=== PATIENT | female | born 1995 | race Caucasian/White ===

== ENCOUNTER 2016-08-17 22:39 | Emergency (ER) | payer OTHER ==
[2016-08-17 23:13] VITALS: BP 141/65; PULSE 123; TEMP 100.8; BMI 47.5
--- NOTE | 2016-08-17 23:28 | PDOC ---
History of Present Illness - General History Source: Patient - History of Present Illness Initial Comments: 08/17/16 23:42 The patient is a 20 year old female with a significant past medical history of asthma who presents to the Emergency Department with complaints of bodyache and nausea since yesterday. Pt states that she was seen in [facility] this morning with the same complaint and was diagnosed with viral syndrome. Pt presented to the ER since her symptoms did not improve. She also reports chills and sore throat while in the ER. She reports taking Tylenol in the morning, with no relief. She denies abdominal pain, vomiting, diarrhea, dysuria, hematuria, headache, chest pain, SOB. <Ela Neil - Last Filed: 08/17/16 23:42> <Leslie Sapp - Last Filed: 08/18/16 06:20> - General Chief Complaint: Nausea/Vomiting Stated Complaint: NAUSEA/VOMITING Time Seen by Provider: 08/17/16 23:25 Past History <Ela Neil - Last Filed: 08/17/16 23:42> - Past Medical History Asthma: Yes (as a child) Cancer: No Cardiac Disorders: No Diabetes: No HTN: No Seizures: No Thyroid Disease: No - Psycho/Social/Smoking Cessation Hx Suicidal Ideation: No Smoking History: Never smoked Have you smoked in the past 12 months: No Hx Alcohol Use: No Drug/Substance Use Hx: No Hx Substance Use Treatment: No <Leslie Sapp - Last Filed: 08/18/16 06:20> - Past Medical History Allergies/Adverse Reactions: Allergies Allergy/AdvReac Type Severity Reaction Status Date / Time No Known Allergies Allergy Verified 08/17/16 23:11 Home Medications: Ambulatory Orders Acetaminophen [Tylenol] 650 mg PO QID PRN 08/17/16 Oseltamivir Phosphate [Tamiflu] 75 mg PO DAILY #9 capsule 08/18/16 Review of Systems - Review of Systems Able to Perform ROS?: Yes Comments:: 08/17/16 23:43 GENERAL/CONSTITUTIONAL: Yes: bodyache, chills No: fever, loss of appetite. HEAD, EYES, EARS, NOSE AND THROAT: Yes: sore throat No: change in vision, ear pain, discharge, throat swelling. CARDIOVASCULAR: No: chest pain, lightheadedness, palpitations, syncope RESPIRATORY: No: cough, shortness of breath, wheezing, hemoptysis, stridor. GASTROINTESTINAL: Yes: nausea No: vomiting, abdominal cramping, diarrhea, rectal bleeding, constipation. GENITOURINARY: No: dysuria, hematuria, frequency, urgency, flank pain. MUSCULOSKELETAL: No: back pain, neck pain, joint pain, muscle swelling or pain SKIN AND BREASTS: No: lesions, pallor, rash or easy bruising. NEUROLOGIC: No: headache, vertigo, paresthesias, weakness ENDOCRINE: No: unexplained weight gain or loss HEMATOLOGIC/LYMPHATIC: No: anemia, easy bleeding, swelling nodes All Other Systems: Reviewed and Negative <Ela Neil - Last Filed: 08/17/16 23:42> *Physical Exam - Vital Signs Last Vital Signs Temp Pulse Resp BP Pulse Ox 100.8 F H 123 H 16 141/65 98 08/17/16 23:12 08/17/16 23:12 08/17/16 23:12 08/17/16 23:12 08/17/16 23:12 - Physical Exam Comments: 08/17/16 23:44 GENERAL: The patient is in no acute distress. HEAD: Normal with no signs of trauma. EYES: PERRLA, EOMI, sclera anicteric, conjunctiva clear. ENT: Ears normal, nares patent, oropharynx clear without exudates. Moist mucous membranes. NECK: Normal range of motion, supple without lymphadenopathy, JVD, or masses. LUNGS: Breath sounds equal, clear to auscultation bilaterally. No wheezes, and no crackles. HEART:+tachycardia. normal S1 and S2 without murmur, rub or gallop. ABDOMEN: Soft, nontender, normoactive bowel sounds. No guarding, no rebound. EXTREMITIES: Normal range of motion, no edema. No clubbing or cyanosis. No erythema, or tenderness. NEUROLOGICAL: Cranial nerves II through XII grossly intact. Normal speech. No focal neurological deficits. MUSCULOSKELETAL: Back non-tender to palpation, no CVA tenderness SKIN: Warm, Dry, normal turgor, no rashes or lesions noted. <Ela Neil - Last Filed: 08/17/16 23:42> - Vital Signs Last Vital Signs Temp Pulse Resp BP Pulse Ox 100.8 F H 123 H 16 141/65 98 08/17/16 23:12 08/17/16 23:12 08/17/16 23:12 08/17/16 23:12 08/17/16 23:12 <Leslie Sapp - Last Filed: 08/18/16 06:20> Medical Decision Making - Medical Decision Making 08/18/16 06:18 Pt comes with cough and fever and sore throat and feeling unwell. She states that she was told she has a flu yesterday at [facility] ER and that she was given no treatment. She has no other complaints. Pt is not vomiting. SHe will hydrate orally, she doesn't want to have blood tests or to receive IV fluids. Rapi step is negative and Flu culture is positive. She will be treated with tamiflu. Her UA is normal. <Leslie Sapp - Last Filed: 08/18/16 06:20> *DC/Admit/Observation/Transfer - Attestations Scribe Attestion: 08/17/16 23:45 Documentation prepared by Ela Neil, acting as medical office assistant for Leslie Sapp MD. <Ela Neil - Last Filed: 08/17/16 23:42> - Discharge Dispostion Admit: No <Leslie Sapp - Last Filed: 08/18/16 06:20> Diagnosis at time of Disposition: Influenza - Discharge Dispostion Disposition: HOME Condition at time of disposition: Stable - Prescriptions Prescriptions: Oseltamivir Phosphate [Tamiflu] 75 mg PO DAILY #9 capsule - Patient Instructions Printed Discharge Instructions: Influenza
[2016-08-17] MEDS ORDERED: IBUPROFEN 600 MG TABLET (FP) PO ONE (23:43)
[2016-08-18] MEDS ORDERED: IBUPROFEN 600 MG TABLET (FP) PO ONE (00:05)
[2016-08-18 00:20] LABS: URINE APPEARANCE CLEAR; URINE BILIRUBIN NEGATIVE (NEGATIVE); URINE BLOOD NEGATIVE (NEGATIVE); URINE COLOR YELLOW; URINE GLUCOSE (UA) NEGATIVE (NEGATIVE); URINE KETONE 1+ (NEGATIVE); URINE LEUK ESTERASE NEGATIVE (NEGATIVE); URINE NITRITE NEGATIVE (NEGATIVE); URINE PROTEIN NEGATIVE (NEGATIVE); URINE UROBILINOGEN NEGATIVE E.U./dl (0.2-1.0)
[2016-08-18] MEDS ORDERED: OSELTAMIVIR PHOSPHATE 75 MG CAPSULE PO ONE (00:35)
[2016-08-18] MEDS ORDERED: OSELTAMIVIR PHOSPHATE 75 MG CAPSULE ONE (00:39)
== END 2016-08-18 01:00 | disposition home or self-care (01) ==
LOC: JER 22:39
DX: J09.X2 Influenza due to identified novel influenza A virus with other respiratory manifestations (principal)
CPT/HCPCS: 81003; 84703; 87070; 87430; 87804; 99282-25

== ENCOUNTER 2018-06-18 18:40 | Emergency (ER) | payer OTHER ==
[2018-06-18 18:49] VITALS: BP 137/73; PULSE 77; TEMP 98.2; BMI 32.0
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
--- NOTE | 2018-06-18 19:20 | PDOC ---
Attending Attestation - Resident Resident Name: Shawn Giraldo - ED Attending Attestation I have performed the following: I have examined & evaluated the patient, The case was reviewed & discussed with the resident, I agree w/resident's findings & plan
[2018-06-18 19:57] LABS: BASO % 0.5 % (0-2.0); EOS % 1.8 % (0-4.5); HEMATOCRIT 32.4 % (32.4-45.2); HEMOGLOBIN 11.3 GM/dL (10.7-15.3); LYMPH % 28.6 % (8-40); MCH 30.9 pg (25.7-33.7); MCHC 34.7 g/dl (32.0-36.0); MEAN CELL VOLUME 89.1 fl (80-96); MEAN PLT VOLUME 8.6 fl (7.5-11.1); MONO % 7.3 % (3.8-10.2); NEUT % 61.8 % (42.8-82.8); PLATELET COUNT 287 K/MM3 (134-434); RBC 3.64 M/mm3 (3.60-5.2); RDW 15.5 % (11.6-15.6); WHITE BLOOD COUNT 9.1 K/mm3 (4.0-10.0)
[2018-06-18 19:59] LABS: URINE APPEARANCE SLCLOUDY; URINE BILIRUBIN NEGATIVE (<2.0 mg/dL); URINE COLOR YELLOW; URINE GLUCOSE (UA) NEGATIVE (NEGATIVE); URINE KETONE NEGATIVE (NEGATIVE); URINE LEUK ESTERASE 1+ (NEGATIVE); URINE NITRITE NEGATIVE (NEGATIVE); URINE PROTEIN NEGATIVE (NEGATIVE); URINE UROBILINOGEN NEGATIVE mg/dL (0.2-1.0)
[2018-06-18 20:19] LABS: PROTHROMBIN TIME (PATIENT) 11.8 SEC (9.7-13.0)
[2018-06-18 20:21] LABS: EPI CELLS MODERATE /HPF (FEW); URINE BACTERIA RARE /hpf (NONE SEEN); URINE MUCUS RARE
[2018-06-18 20:22] LABS: ACTIVATED PTT 28.4 SECONDS (25.2-36.5)
[2018-06-18 20:36] LABS: ALBUMIN 3.4 g/dl (3.4-5.0); ALK PHOS 105 U/L (45-117); ANION GAP 9 MMOL/L (8-16); BILIRUBIN,TOTAL 0.2 mg/dL (0.2-1); BLOOD UREA NITROGEN 14 mg/dL (7-18); CALCIUM 8.4 mg/dL (8.5-10.1); CHLORIDE 105 mmol/L (98-107); CO2 27 mmol/L (21-32); CREATININE 0.9 mg/dL (0.55-1.3); GLUCOSE,RANDOM 83 mg/dL (74-106); POTASSIUM 3.9 mmol/L (3.5-5.1); SGOT/AST 17 U/L (15-37); SGPT/ALT 24 U/L (13-61); SODIUM 141 mmol/L (136-145); TOT PROT 7.9 g/dl (6.4-8.2)
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
== END 2018-06-18 22:33 | disposition home or self-care (01) ==
LOC: JER 18:40
DX: O26.891 Other specified pregnancy related conditions, first trimester (principal); M54.5 Low back pain; R10.30 Lower abdominal pain, unspecified; O20.8 Other hemorrhage in early pregnancy; Y00.XXXA Assault by blunt object, initial encounter; Y93.89 Activity, other specified; Y92.038 Other place in apartment as the place of occurrence of the external cause; Y99.8 Other external cause status; Y07.499 Other family member, perpetrator of maltreatment and neglect
CPT/HCPCS: 36415; 76817-TC; 80053; 81003; 81015; 84702; 85025; 85610; 85730; 86850; 86900; 86901; 87081; 87086; 99283-25